=== PATIENT | male | born 1940 | race Caucasian/White ===

== ENCOUNTER 2016-08-15 14:42 | Emergency (ER) | payer BC ==
[2016-08-15] MEDS ORDERED: HYDROCODONE/APAP 7.5/325MG TABLET PO ONE (15:02)
[2016-08-15] MEDS ORDERED: Diph,Pert(Acell),Tet Vac 0.5 ML SYR IM ONE (15:03)
--- NOTE | 2016-08-15 15:15 | Emergency Department Record ---
History of Present Illness - General Chief Complaint: Facial Swelling Stated Complaint: FACE INJURY Time Seen by Provider: 08/15/16 14:50 Source: Patient, Family Mode of Arrival: Ambulatory Limitations: No limitations - History of Present Illness Initial Comments: 76 yo male presents after being hit in the face just under the nose while doing yard work. He was pushing mulch with a yard winston and the winston flipped up striking him in the face. No LOC but he felt stunned for several minutes. No teeth injury. He has some bleeding from the nose. No vision changes. He denies any other injuries. Last Tetanus was greater than 5 years ago. MD Complaint: Fall, Other Onset/Timin -: Minutes(s) When Fall Occurred: Just prior to arrival Fall Witnessed: No Place Fall Occurred: Home Loss of Consciousness: None Prolonged Down Time?: No Symptoms Prior to Fall: None Location: Other (Face) Severity: Severe Quality: Aching Associated Symptoms: Denies - Radha Coma Scale Eye Response: (4) Open spontaneously Motor Response: (6) Obeys commands Verbal Response: (5) Oriented [place] Total: 15 - Related Data Home Medications Medication Instructions Recorded Confirmed Last Taken Nefazodone HCl [Nefazodone HCl] 150 mg PO QID 11/14/14 08/15/16 Unknown Alprazolam 1 mg PO ASDIR 90 Days 07/29/16 08/15/16 Unknown Previous Rx's Medication Instructions Recorded Doxycycline Hyclate [Doxycycline] 100 mg PO BID #8 cap 08/15/16 Hydrocodone/Acetaminophen [Caney 1 each PO Q8H PRN #15 tablet 08/15/16 7.5-325 Tablet] Allergies Allergy/AdvReac Type Severity Reaction Status Date / Time codeine Allergy HIVES Verified 08/15/16 14:51 Travel Screening - Travel/Exposure Within Last 30 Days Have you traveled within the last 30 days?: No Review of Systems Constitutional: Denies: Chills, Fever, Weakness Eyes: Denies: Eye discharge, Eye pain, Photophobia, Vision change ENT: Reports: Epistaxis. Denies: Congestion, Dental pain, Ear pain, Throat pain Respiratory: Denies: Cough, Dyspnea, Hemoptysis Cardiovascular: Denies: Chest pain, Palpitations, Syncope Endocrine: Denies: Fatigue Gastrointestinal: Denies: Abdominal pain, Diarrhea, Nausea, Vomiting Genitourinary: Denies: Dysuria, Frequency, Hematuria Musculoskeletal: Denies: Arthralgia, Back pain, Joint swelling, Myalgia Skin: Denies: Bruising, Change in color, Rash Neurological: Denies: Confusion, Headache, Numbness, Tingling, Vertigo, Weakness Psychiatric: Denies: Anxiety Hematological/Lymphatic: Denies: Blood Clots, Easy bleeding, Easy bruising, Swollen glands Past Medical History - SOCIAL HISTORY Smoking Status: Former smoker Alcohol Use: None Drug Use: None - RESPIRATORY Hx Respiratory Disorders: Yes Hx Bronchitis: Yes - CARDIOVASCULAR Hx Cardio Disorders: Yes Comment:: rheumatic fever in high school and hx of murmur - NEURO Hx Neuro Disorders: Yes Hx Dizziness: Yes (from inner ear infections) - GI Hx GI Disorders: Yes Comment:: bowel surgery and colostomy. Colostomy was reversed. appendix burst - Hx Genitourinary Disorders: Yes Hx Prostate Problems: Yes - ENDOCRINE Hx Endocrine Disorders: No Hx Diabetes: (hypoglycemia) - MUSCULOSKELETAL Hx Musculoskeletal Disorders: Yes Hx Back Injury: Yes - PSYCH Hx Psych Problems: No - HEMATOLOGY/ONCOLOGY Hx Hematology/Oncology Disorders: No Family Medical History Any Significant Family History?: No Physical Exam - General General Appearance: Alert, Oriented x3, Cooperative, No acute distress Limitations: No limitations - Head Head exam: negative: Atraumatic, Normal inspection Head exam detail: Abrasion, Contusion (just under the nose). negative: General tenderness Image of Face/Head: 1 - abrasion with superificial skin avulsion, epistaxis - Eye Eye exam: Normal appearance, PERRL, EOMI. negative: Conjunctival injection, Nystagmus, Periorbital swelling - ENT ENT exam: Mucous membranes moist, Normal orophraynx Ear exam: Normal external inspection. negative: External canal tenderness Nasal Exam: Active bleeding, Dried blood, Sinus tenderness. negative: Normal inspection, Foreign body Mouth exam: Normal external inspection, Tongue normal Teeth exam: Normal inspection, Other (dentures intact). negative: Dental caries Throat exam: Normal inspection. negative: Tonsillar erythema, Tonsillar exudate - Neck Neck exam: Normal inspection, Full ROM. negative: Tenderness - Respiratory Respiratory exam: Normal lung sounds bilaterally. negative: Respiratory distress - Cardiovascular Cardiovascular Exam: Regular rate, Normal rhythm, Normal heart sounds - Rectal Rectal exam: Deferred - exam: Deferred - Extremities Extremities exam: Normal inspection, Full ROM, Normal capillary refill. negative: Pedal edema, Tenderness - Back Back exam: Reports: Normal inspection, Full ROM. Denies: Muscle spasm, Rash noted, Tenderness - Neurological Neurological exam: Alert, Normal gait, Oriented X3, Reflexes normal - Psychiatric Psychiatric exam: Normal affect, Normal mood. negative: Agitated, Anxious - Skin Skin exam: Dry, Intact, Normal color, Warm Course Vital Signs 08/15/16 14:49 Temperature 97.5 F L Pulse Rate 63 Respiratory 20 Rate Blood Pressure 145/70 Pulse Ox 95 - Reevaluation(s) Reevaluation #1: TLE was placed in the nose to better visualized and achieve hemostasis The right nostril was clear, no septal hematoma. 08/15/16 16:00 Reevaluation #2: The packing with TLE was removed from the left nostril no active bleeding or septal hematoma. 08/15/16 16:15 Reevaluation #3: The CT scan demonstrated a left sided non displaced nasal fracture. 08/15/16 16:27 Disposition Disposition: Discharge Clinical Impression: Nasal bone fracture Nasal contusion Qualifiers: Encounter type: initial encounter Qualified Code(s): S00.33XA - Contusion of nose, initial encounter Disposition: Home, Self-Care Condition: (1) Good Instructions: Nasal Fracture (ED), Nasal Contusion (ED) Additional Instructions: Ice to the face to minimize pain and swelling Return if you have swelling, fever, uncontrolled pain or any new concerns. Prescriptions: Doxycycline Hyclate [Doxycycline] 100 mg PO BID #8 cap Hydrocodone/Acetaminophen [Caney 7.5-325 Tablet] 1 each PO Q8H PRN #15 tablet PRN Reason: Pain - General Forms: Patient Portal Access Time of Disposition: 16:31
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
== END 2016-08-15 16:43 | disposition home or self-care (01) ==
LOC: ER 14:42
DX: S02.2XXA Fracture of nasal bones, initial encounter for closed fracture (principal); S00.83XA Contusion of other part of head, initial encounter; R04.0 Epistaxis; R42 Dizziness and giddiness; W22.8XXA Striking against or struck by other objects, initial encounter; Y93.H9 Activity, other involving exterior property and land maintenance, building and construction; Y92.009 Unspecified place in unspecified non-institutional (private) residence as the place of occurrence of the external cause
CPT/HCPCS: 70450; 70486; 90715; 96372; 99283

== ENCOUNTER 2016-09-29 09:26 | Day surgery (SDC) | payer BC ==
[2016-09-29] MEDS ORDERED: LIDOCAINE 2% MDV (20MG/ML) 20ML VIAL IV ONE (14:00)
[2016-09-29] MEDS ORDERED: PROPOFOL 10 MG/ML VIAL IV ONE (14:00)
--- NOTE | 2016-10-01 14:23 | Operative Note ---
DATE OF SURGERY: 09/29/2016 OPERATION: COLONOSCOPY to the cecum with multiple electrocautery snare polypectomy and multiple cold snare polypectomy. INDICATION: Colorectal cancer screening. The patient does have a previous history of sigmoid resection for diverticular disease. It was 10 years since his last examination was completed by one of my previous associates. ANESTHESIA: Intravenous sedation was administered by the department of anesthesiology and included Diprivan titrated to effect. PROCEDURE: Following informed consent from this alert individual including a discussion of the risks and benefits of the procedure and an opportunity for the patient to ask questions, the patient was in the left lateral decubitus position. A digital rectal examination was performed. No abnormalities were noted. Following this, the Olympus [id number] video colonoscope was inserted into the rectum without resistance. The rectal mucosa had a normal appearance with normal folds and distensibility. The colonoscope was advanced up through the bowel to the level of the cecum without much difficulty. There was an anastomosis noted in the sigmoid region which was widely patent. The cecum was defined by noting the appendiceal orifice and ileocecal valve. The colon preparation was good. There were multiple polyps removed upon withdrawal. There were 2 polyps measuring 8 and 10 mm in size in the cecum which were each removed with electrocautery snare polypectomy. There was a total of 6 polyps removed from the transverse colon measuring between 4 and 10 mm in size. The smaller polyps were removed with cold snare polypectomy and the larger polyps with electrocautery snare. There was a single 5 mm polyp removed from the descending colon with cold snare polypectomy and a 4 mm rectal polyp removed with cold snare polypectomy. Retroflexion in the rectum was endoscopically unremarkable. No other changes were noted. The instrument was removed. The patient tolerated the procedure well and was returned to the recovery area in stable condition. IMPRESSION: 1. A total of 10 polyps removed as described above with 2 in the cecum, 6 in the transverse colon, 1 in the descending colon, and 1 in the rectum removed with electrocautery snare and cold snare as described above. 2. Previous sigmoid colon resection. RECOMMENDATIONS: Further recommendations will be forthcoming pending results of pathology obtained today. Most likely the patient will undergo recheck colonoscopy for surveillance purposes in 3 years' time. Followup will also be with Dr. Juarez. As always, thank you for allowing me to participate in the care of your patient. CC: Dr. Elgin ECHAVARRIA
== END 2016-09-29 10:46 | disposition home or self-care (01) ==
LOC: HOP 09:26
PROVIDERS: ATTEND Internal Medicine Gastroenterology
DX: Z12.11 Encounter for screening for malignant neoplasm of colon (principal); D12.7 Benign neoplasm of rectosigmoid junction; D12.0 Benign neoplasm of cecum; D12.4 Benign neoplasm of descending colon